=== PATIENT | male | born 1995 | race Caucasian/White ===

== ENCOUNTER 2017-01-23 09:52 | Emergency (ER) | payer OTHER ==
[~2017-01-23] VITALS: Ht 195.6 cm; Wt 69.4 kg
[2017-01-23 10:30] LABS: BASOPHIL # 0.1 10^3/uL (0.0-0.1); BASOPHIL % 0.6 % (0.0-0.2); EOSINOPHIL # 0.2 10^3/uL (0.0-0.2); HEMOGLOBIN 15.2 g/dL (13.2-15.6); LYMPHOCYTES # 2.2 10^3/uL (1.2-5.2); LYMPHOCYTES % 23.8 % (24.0-44.0); MEAN CELL HGB CONCENTRATION 33.7 g/dL (33-37); MEAN CORP VOLUME 91.9 fL (78-100); MEAN PLATELET VOLUME 9.5 fL (7.8-11.0); MONOCYTES # 0.5 10^3/uL (0.0-0.4); MONOCYTES % 5.5 % (5.0-12.0); NEUTROPHIL # 6.1 10^3/uL (1.8-8.0); NEUTROPHILS % 67.5 % (41.0-85.0); RED CELL DISTRIBUTION WIDTH 12.6 % (11.5-14.5)
--- NOTE | 2017-01-23 10:43 | ER.PDOC ---
General Chief Complaint: Dizziness Stated Complaint: DIZZY/NAUSEA Time seen by MD: 10:42 Source: patient Exam Limitations: no limitations History of Present Illness Initial Comments Dizziness and nausea since yesterday. Feel better today. Occurred: yesterday Severity: mild Worsened By: nothing Past Medical History Medical History: hypertension Surgical History: no surgical history Social History Smoking: less than 1 pack/day Alcohol Use: rarely Drug Use: none Review of Systems Constitutional: no symptoms reported Ears: dizziness Respiratory: no symptoms reported Cardiovascular: no symptoms reported Gastrointestinal: nausea Genitourinary: no symptoms reported All Other Systems: Reviewed and Negative Physical Exam General Appearance: alert, no distress Neck: supple Respiratory: no resp distress, breath sounds nml CVS: reg rate & rhythm, heart sounds.nml Abdomen: non-tender, no organomegaly, no distention Extremities: non-tender, nml ROM, no pedal edema Neuro/Psych: nml orientation, nml speech/cognition, nml mood/affect Cranial Nerves: nml as tested, no evidence of acute CVA Sensorimotor: nml motor, nml sensation Results/Orders Results/Orders Laboratory Tests Test 01/23/17 10:20 White Blood Count 9.0 10^3/uL (4.5-13.0) Red Blood Count 4.91 10^6/uL (4.50-5.90) Hemoglobin 15.2 g/dL (13.2-15.6) Hematocrit 45.1 % (37.0-53.0) Mean Corpuscular Volume 91.9 fL (78-100) Mean Corpuscular Hemoglobin 31.0 pg (26-34) Mean Corpuscular Hemoglobin Concent 33.7 g/dL (33-37) Red Cell Distribution Width 12.6 % (11.5-14.5) Platelet Count 296 10^3/uL (150-400) Mean Platelet Volume 9.5 fL (7.8-11.0) Neutrophils (%) (Auto) 67.5 % (41.0-85.0) Lymphocytes (%) (Auto) 23.8 % (24.0-44.0) Monocytes (%) (Auto) 5.5 % (5.0-12.0) Neutrophils # (Auto) 6.1 10^3/uL (1.8-8.0) Lymphocytes # (Auto) 2.2 10^3/uL (1.2-5.2) Monocytes # (Auto) 0.5 10^3/uL (0.0-0.4) Absolute Immature Granulocyte (auto 0.05 10^3 u/L (0-2) Eosinophils % 2.0 % (0.0-5.0) Basophils % 0.6 % (0.0-0.2) Basophils # 0.1 10^3/uL (0.0-0.1) Eosinophil Count 0.2 10^3/uL (0.0-0.2) Sodium Level 143 mmol/L (132-145) Potassium Level 4.5 mmol/L (3.6-5.2) Chloride Level 107.0 mmol/L (96-109) Carbon Dioxide Level 29.7 mmol/L (20.0-32) Anion Gap 10.8 Blood Urea Nitrogen 9 mg/dL (7-18) Creatinine 0.78 mg/dL (0.59-1.40) Estimated GFR () 153.5 (>/=60) BUN/Creatinine Ratio 11.0 Glucose Level 103 mg/dL (70-110) Calcium Level 9.2 mg/dL (8.4-10.5) Total Bilirubin 0.5 mg/dL (0.2-1.0) Aspartate Amino Transf (AST/SGOT) 17 U/L (0-35) Alanine Aminotransferase (ALT/SGPT) 27 U/L (12-78) Alkaline Phosphatase 78 U/L (50-136) Total Protein 7.0 g/dL (6.4-8.2) Albumin 3.8 g/dL (3.4-5.0) Globulin 3.2 Percent Immature Gran (Cell Imm) 0.60 % (0.00-0.50) EKG/XRAY/CT/US EKG: NSR Departure Time of Disposition: 11:08 Disposition: 01 HOME, SELF-CARE Impression: Primary Impression: Labyrinthitis Additional Impression: Dizziness and giddiness Condition: Stable Referrals: PCP,UNKNOWN (PCP) PRIMARY CARE PROVIDER Additional Instructions: F/U with your PCP in 2-3 days Comments Patient refused medication to be prescribed. Problem Qualifiers Primary Impression: Labyrinthitis Laterality: unspecified laterality Qualified Codes: H83.09 - Labyrinthitis, unspecified ear GARY KAPLAN MD Jan 23, 2017 10:43
[2017-01-23 10:47] LABS: CALCIUM 9.2 mg/dL (8.4-10.5); CARBON DIOXIDE 29.7 mmol/L (20.0-32)
[2017-01-23 11:28] VITALS: BP 145/123
--- NOTE | 2017-01-23 11:33 | PCM.EKG ---
[facility] Test Date: 2017-01-23 Test Time: 10:29:51 Pat Name: MARINE DORANTES Department: Patient ID: [id number] Room: Gender: M Area Operations Director: ARIANA : 1995 Requested By: GARY KAPLAN Order Number: [id number] Reading MD: Gary KAPLAN Measurements Intervals [place] Rate: 90 P: 74 TX: 110 QRS: 88 QRSD: 98 T: 66 QT: 334 QTc: 408 Interpretive Statements Sinus rhythm with short [place] Otherwise normal ECG No previous ECG available for comparison Electronically Signed On 01-24-2017 6:51:38 CDT by Gary KAPLAN Please click the below link to view image of tracing.
== END 2017-01-23 11:27 | disposition home or self-care (01) ==
LOC: ER 09:52
DX: H83.09 Labyrinthitis, unspecified ear (principal); R42 Dizziness and giddiness; R11.0 Nausea; I10 Essential (primary) hypertension; F17.200 Nicotine dependence, unspecified, uncomplicated
CPT/HCPCS: 36415; 80053; 85025; 93005; 99285